=== PATIENT | male | born 1940 | race Caucasian/White ===

== ENCOUNTER → 2016-09-15 | Outpatient (CLI) | payer MEDICARE ==
[~2016-09-15] MED LIST: ALLOPURINOL100 MG PO; ALPRAZOLAM1 MG PO; BYSTOLIC5 MG PO; HYDROCODONE/ACE1 TA5 PO; HYZAAR 50-12.51 EACH PO; HYZAAR1 TAB PO; MIRALAX(PO17 GM/1 PA PO; MORPHINE SULFAT30 M3 PO; PRILOSEC20 M1 PO; SUPARTZ IJ; TRAMADOL 50MG T50 M1 PO; VITAMIN B COMPL1 SGL PO; VITAMIN B-1100 MG PO; VITAMIN D1000 IU PO; XANAX 1MG TABLET1 MG PO
[2016-09-15 13:38] LABS: HEMOGLOBIN 15.1 g/dL (14.1-18.0); LYMPH % 35.3 % (10-50)
[2016-09-15 15:35] LABS: BUN 21 mg/dL (7-18)
[2016-09-15 15:37] LABS: GFR (ESTIMATED) 82 ML/MIN (>60)
== END ==
LOC: LAB 13:26
PROVIDERS: Anesthesiology
DX: M51.36 Other intervertebral disc degeneration, lumbar region (principal); Z01.812 Encounter for preprocedural laboratory examination